=== PATIENT | male | born 1960 | race Caucasian/White ===

== ENCOUNTER 2024-03-13 11:31 | Emergency (ER) | payer BC, SELFPAY ==
[2024-03-13 11:39] VITALS: BP 129/97
--- NOTE | 2024-03-13 12:07 | ED.GENMED ---
History of Present Illness
General
Chief Complaint: Male Genito-Urinary Symptoms
Time Seen by Provider: 03/13/24 11:58
Travel History
Have you had any contact with someone who has COVID-19?: No
Do you have any symptoms of coronavirus? Fever > 100 degrees, chills, cough, shortness of breath, sore throat, loss of taste or smell, muscle aches, or headache?: No
History of Present Illness
History of Present Illness:
HPI: Patient presents with priapism. The has occurred in the past and occurs related to injection for erectile dysfunction. He has been here for the same in the past and required aspiration and phenylephrine treatment. He feels that he was here
sooner this time and comparison to the last time. He is known to Dr. Pickett. He has already tried Sudafed and ice without relief.
EXAM:
GENERAL: Well appearing in no distress
HEENT: Moist oral mucosa
: Erection noted
NEUROLOGIC: Excellent strength all extremities, no coordination deficits
PSYCHIATRIC: Appropriate mental status, normal insight and judgement
EXTREMITIES: Nontender, no edema, moves all extremities equally
SKIN: No rash, no lesions
TIME OF INITIAL ENCOUNTER: 12:15 PM
NUMBER AND COMPLEXITY OF PROBLEMS ADDRESSED AT THE ENCOUNTER
� Chronic conditions affecting care: Erectile dysfunction, has had prostatectomy
� Acute Exacerbation and/or Progression of Chronic Illness: This is an acute but recurring problem
� Differential Diagnosis includes: This is an acute problem
AMOUNT AND/OR COMPLEXITY OF DATA TO BE REVIEWED AND ANALYZED
� I performed an independent evaluation of and my interpretation is:
EKG:
CT:
X-rays:
Laboratory Studies:
Other:
� Review of other/old records: I reviewed notes from last visit
� Clinical information was obtained by an independent historian: None needed
� Prescriptions/Medications Considered but not given:
� Further testing considered but not performed:
RISK OF COMPLICATIONS AND/OR MORBIDITY OR MORTALITY OF PATIENT MANAGEMENT
� Social determinants of health affecting care: Lives at home
� Discussion with other providers: I spoke to Dr. Adams below
� Escalation of care including admission/observation vs risk of discharge considered: Dr. Blandon performed phenylephrine injection and aspiration of about 60 mL of blood from the right side of the penis. Overall there has been
significant improvement. Will monitor here. We have also placed ice. I reassessed the patient at 1:15 PM, there has been no worsening of symptoms and he is eager to go home indicating that his symptoms are dramatically improved. He will
follow-up with Dr. Pickett.
Phy Exam
Physical Exam
Physical Exam:
See HPI
Course
Orders/Labs/Results
Orders:
Orders
03/13/24 12:04
Phenylephrine [Mika-Synephrine] 5 mg 0.9% Sodium Chloride 50 ml [Nss] 19.5 ml Syringe [Syringe Non-Pump] 0 ml INTRACAVER ONCE PRN
Vital Signs
Initial and Last Documented VS:
Initial Vital Signs
Temp Pulse Resp BP Pulse Ox
98.7 F 80 18 129/97 99
03/13/24 11:39 03/13/24 11:39 03/13/24 11:39 03/13/24 11:39 03/13/24 11:39
Last Documented Vital Signs
Temp Pulse Resp BP Pulse Ox
98.7 F 80 18 137/78 99
03/13/24 11:39 03/13/24 11:39 03/13/24 11:39 03/13/24 13:17 03/13/24 11:39
*Critical Care Note
Total Time (30-74mins, 75-104mins- exclusive of procedures): Not Applicable
ED Attending Note
-
Portions of this chart may have been created with voice recognition software.� Occasional wrong word or��sound alike� substitutions may have occurred due to the inherent limitations of voice recognition software.
Discharge Plan
Departure
Patient Disposition: Home (Routine Discharge)
Date of Disposition: 03/13/24
Time of Disposition: 13:17
Patient with high blood pressure during this ER visit?: Yes
Discharge Problem:
Drug-induced priapism
Prescriptions:
No Action
tamsulosin 0.4 MG capsule
0.4 mg PO DAILY
vitamins A,C,Z-lpfl-zxzkph [PreserVision AREDS] 1 CAP capsule
1 cap PO DAILY
fluticasone propionate 1 SPRAY spray,suspension
2 spray intranasal DAILY
coenzyme [id number] E [Co Q-10 (with Vit E)] 1 EACH capsule
1 ea PO DAILY
montelukast 10 MG tablet
10 mg PO HS
cannabidiol [Epidiolex] 1 UNIT solution
1 unit PO PRN PRN (Reason: anxiety)
Drtldiruqh-Limqabaxbow-DUQ Tab
1 tab PO DAILY
simvastatin 20 MG tablet
20 mg PO QPM
levothyroxine 200 MCG tablet
200 mcg PO DAILY AT 0700
acetaminophen [Tylenol] 325 MG capsule
650 mg PO Q6HPRN PRN (Reason: pain) Qty: 1 0RF
tramadol 50 MG tablet
50 mg PO QIDPRN PRN (Reason: severe pain) Qty: 15 0RF
cephalexin 500 mg capsule
500 mg PO BID 7 Days Qty: 14 0RF
tramadol 100 mg tablet
100 mg PO BID PRN (Reason: Pain) Qty: 20 0RF
Referrals:
Blair Vance MD [Family Provider] -
Activity Restrictions/Additional Instructions:
Dr. Blandon, Dr. Pickett partner evaluated you and treated you in the emergency department. He states that the bruising and swelling is expected. He wants you to aggressively ice the area for the next 2 days. He recommends NSAIDs for pain. He
also once you to to call Dr. Pickett or nurse in 1 week for wound check.
Interventions
Interventions:
*Risk Screen - Suicide Last Done: 03/13/24 11:41
*General Assessment Last Done: 03/13/24 11:41
*Neglect/Abuse Screening Last Done: 03/13/24 11:41
ED- Fall Risk Assessment Last Done: 03/13/24 12:51
ED-Male Genitourinary Assessment Last Done: 03/13/24 12:51
Discharge Date and Time
Print Language: CYMRAES
[2024-03-13 13:17] VITALS: BP 137/78
== END 2024-03-13 13:30 | disposition home or self-care (01) ==
LOC: EMR 11:31
PROVIDERS: EMERGENCY PHYSICIAN Emergency Medicine; FAMILY PHYSICIAN Internal Medicine; OTHER PHYSICIAN Surgery
DX: N48.33 Priapism, drug-induced (principal); N52.9 Male erectile dysfunction, unspecified; R03.0 Elevated blood-pressure reading, without diagnosis of hypertension; Z90.79 Acquired absence of other genital organ(s)
CPT/HCPCS: 99283; 54220

== ENCOUNTER → 2024-09-23 09:35 | Outpatient (REF) | payer BC, SELFPAY | LOC: RAD 09:35 | PROVIDERS: ATTENDING PHYSICIAN Plastic Surgery; FAMILY PHYSICIAN Internal Medicine | DX: S69.90XA Unspecified injury of unspecified wrist, hand and finger(s), initial encounter (principal) | CPT/HCPCS: 73130 ==

== ENCOUNTER 2024-11-04 10:00 | Outpatient (RCR) | payer MEDICARE, OTHER, SELFPAY | END 2024-11-04 23:59 | disposition home or self-care (01) | LOC: ROT 10:00 | PROVIDERS: ATTENDING PHYSICIAN Orthopaedic Surgery | DX: S62.311D Displaced fracture of base of second metacarpal bone, left hand, subsequent encounter for fracture with routine healing (principal); Z73.6 Limitation of activities due to disability | CPT/HCPCS: 97018; 97110; 97140; 97166; 97535 ==

== ENCOUNTER 2025-06-03 06:59 | Outpatient (RCR) | payer MEDICARE, OTHER, SELFPAY | END 2025-06-03 23:59 | disposition home or self-care (01) | LOC: RPT 06:59 | PROVIDERS: ATTENDING PHYSICIAN Physician Assistant Medical; FAMILY PHYSICIAN Internal Medicine | DX: M54.2 Cervicalgia (principal); M50.30 Other cervical disc degeneration, unspecified cervical region; Z73.6 Limitation of activities due to disability; Z85.528 Personal history of other malignant neoplasm of kidney; Z85.46 Personal history of malignant neoplasm of prostate | CPT/HCPCS: 97110; 97162; 97535 ==

== ENCOUNTER 2025-07-03 14:08 | Outpatient (RCR) | payer MEDICARE, OTHER, SELFPAY | END 2025-07-03 23:59 | disposition home or self-care (01) | LOC: RPT 14:08 | PROVIDERS: ATTENDING PHYSICIAN Physician Assistant Medical; FAMILY PHYSICIAN Internal Medicine | DX: M54.2 Cervicalgia (principal); M50.30 Other cervical disc degeneration, unspecified cervical region; Z73.6 Limitation of activities due to disability; Z85.528 Personal history of other malignant neoplasm of kidney; Z85.46 Personal history of malignant neoplasm of prostate | CPT/HCPCS: 97010; 97110; 97140 ==

== ENCOUNTER 2025-08-01 06:23 | Day surgery (SDC) | payer MEDICARE, OTHER, SELFPAY ==
[2025-08-01 07:07] LABS: Glucose - Point of Care 90 mg/dl (70-99)
== END 2025-08-01 08:28 | disposition home or self-care (01) ==
LOC: GI 06:23
PROVIDERS: ATTENDING PHYSICIAN Internal Medicine Gastroenterology; FAMILY PHYSICIAN Internal Medicine
DX: K52.9 Noninfective gastroenteritis and colitis, unspecified (principal); K64.8 Other hemorrhoids; K52.832 Lymphocytic colitis
CPT/HCPCS: 45380; 82962; 88305; 88342